=== PATIENT | male | born 1970 | race Hispanic/Latino ===

== ENCOUNTER → 2018-07-22 | Day surgery (SDC) | payer OTHER ==
[~2018-07-22] MED LIST: CLONAZEPAM1 MG PO; FENTANYL CITRATE/PF 100MCG/2 ML INJ ONE; LOSARTAN-HCTZ1 EACH PO; METFORMIN HCL500 MG PO; MIDAZOLAM HCL 2 MG/2 ML VIAL ONE; PROPOFOL IV EMULSION 10 MG/ML 50 ML VIAL ONE
--- OUTSIDE RECORDS SUMMARY | 2018-07-22 05:11 | XMS REPORT | Summary of Care ---
Author Author Meek Benson Organization Unknown Address Unknown Phone Unavailable Care Team Providers Care Marketing Manager Name Role Phone Vickey Burns M.D. Unavailable Unavailable KIAH MENDOZA MD, DAVID Unavailable Unavailable Functional Status Name Dates Details Functional status health issues are not documented Status: Name Dates Details Cognitive status health issues are not documented Status: Problems Name Dates Details Finding of neck region (723.9, M53.82) Status: Active Back pain, lumbosacral (724.2, M54.5) Status: Active Pain of left shoulder region (719.41, M25.512) Status: Active Acute pain of left knee (719.46, M25.562) Status: Active Medications Name Dates Details No Reported Medications Active Allergies and Adverse Reactions Name Dates Details No Known Drug Allergies (Allergy) Status: Active Past Medical History Name Dates Details History of depression (V11.8, Z86.59) Status: Resolved History of diabetes mellitus (V12.29, Z86.39) Status: Resolved History of gastroesophageal reflux (GERD) (V12.79, Z87.19) Status: Resolved History of hypercholesterolemia (V12.29, Z86.39) Status: Resolved Procedures Procedure Dates Details Procedures not documented Immunization Name Dates Details Immunizations not documented Family History Name Dates Details Family history of depression (V17.0, Z81.8) Comments: Family History Status: Active Family history of stroke (V17.1, Z82.3) Comments: Family History Status: Active Family history of lymphoma (V16.7, Z80.7) Comments: Family History Status: Active Family history of heart attack (V17.3, Z82.49) Comments: Family History Status: Active Family history of hypertension (V17.49, Z82.49) Comments: Family History Status: Active Family history of gastroesophageal reflux disease (V18.59, Z83.79) Comments: Family History Status: Active Family history of colon cancer (V16.0, Z80.0) Comments: Family History Status: Active Social History Name Dates Details - Status: Name Dates Details Never smoker Vital Signs Date Test Result Details No Known Vitals to report Results Date Description Value Details Results not documented Plan of Care Name Dates Details Planned Observations Planned Goals not documented Instructions Name Dates Details Instructions not documented Encounters Appointment; MIKHAIL CRAIG M.D. Encounter Diagnosis: Problem not documented On: 02-Nov-2016 8:00 Appointment; MIKHAIL CRAIG M.D. Encounter Diagnosis: Problem not documented On: 23-Aug-2017 11:00 Appointment; ZENON AGUILA Encounter Diagnosis: Problem not documented On: 26-Nov-2017 15:30 Appointment; Vickey Burns M.D. Encounter Diagnosis: Problem not documented On: 23-Dec-2017 15:15
[2018-07-22 07:55] VITALS: BP 123/81
== END | disposition home or self-care (01) ==
LOC: OR 05:05
PROVIDERS: ATTEND Internal Medicine Gastroenterology
DX: Z12.11 Encounter for screening for malignant neoplasm of colon (principal); D12.2 Benign neoplasm of ascending colon; K29.50 Unspecified chronic gastritis without bleeding; K31.89 Other diseases of stomach and duodenum; K21.0 Gastro-esophageal reflux disease with esophagitis; K57.30 Diverticulosis of large intestine without perforation or abscess without bleeding; K64.8 Other hemorrhoids; Z71.3 Dietary counseling and surveillance; E66.01 Morbid (severe) obesity due to excess calories; I10 Essential (primary) hypertension; E11.9 Type 2 diabetes mellitus without complications; G47.30 Sleep apnea, unspecified; E78.5 Hyperlipidemia, unspecified; F32.9 Major depressive disorder, single episode, unspecified; F41.9 Anxiety disorder, unspecified; Z68.43 Body mass index [BMI] 50.0-59.9, adult; Z87.891 Personal history of nicotine dependence
CPT/HCPCS: 36415; 43239; 45385; 82948; J2250; 45378